=== PATIENT | male | born 1975 | race Caucasian/White ===

== ENCOUNTER 2016-11-14 03:48 | Emergency (ER) | payer OTHER ==
[2016-11-14 04:05] VITALS: BP 217/116
[2016-11-14] MEDS ORDERED: Ketorolac INJ* 60 MG/2 ML VIAL IM ONE (04:18)
--- NOTE | 2016-11-14 04:20 | ED ---
Joshua Mejia Matthew, scribed for rIon Briones MD on 11/14/16 at 0420 . Back Pain - HPI Summary HPI Summary: A 41 y/o male presents to the ED lower back pain since yesterday evening. The pain is rated 4/10 in severity. The patient states that he twisted in the car and felt sudden lower back pain. The pain worsens when rising his arms and with movement. He's also c/o of erythema and pruritic rash of the left lower extremity. He recently had a tattoo at that location. - History of Current Complaint Chief Complaint: EDBackInjuryPain Stated Complaint: LOWER BACK PAIN Time Seen by Provider: 11/14/16 04:06 Hx Obtained From: Patient Onset/Duration: Sudden Onset, Lasting Days, Still Present Onset/Duration: Started Days Ago, Atraumatic, Still Present Timing: Constant Back Pain Location: Is Discrete @ - lower back Severity Initially: Moderate Severity Currently: Moderate Pain Intensity: 4 Pain Scale Used: 0-10 Numeric Aggravating Symptom(s): Movement Associated Signs And Symptoms: Positive: Other - pain lifting his arms upon his waist - Allergies/Home Medications Allergies/Adverse Reactions: Allergies Allergy/AdvReac Type Severity Reaction Status Date / Time Amoxicillin [From Augmentin] Allergy Rash Verified 11/14/16 03:53 Clavulanic Acid Allergy Rash Verified 11/14/16 03:53 [From Augmentin] PMH/Surg Hx/FS Hx/Imm Hx Previously Healthy: Yes Endocrine/Hematology History: Denies: Hx Diabetes Cardiovascular History: Denies: Hx Hypertension - Surgical History Surgery Procedure, Year, and Place: left knee ACL repair Infectious Disease History: No Infectious Disease History: Denies: Traveled Outside the [place] in Last 30 Days - Family History Known Family History: Positive: Diabetes - grandmother - Social History Occupation: Employed Full-time Alcohol Use: Daily Hx Substance Use: No Substance Use Type: Reports: None Hx Tobacco Use: No Smoking Status (MU): Never Smoked Tobacco Review of Systems Constitutional: Negative Eyes: Negative ENT: Negative Cardiovascular: Negative Respiratory: Negative Gastrointestinal: Negative Genitourinary: Negative Musculoskeletal: Other - pain with lifting his arms above his waist Positive: Myalgia - lower back pain Positive: Rash - left lower extermitiy, erythematous and pruritic Neurological: Negative Psychological: Normal All Other Systems Reviewed And Are Negative: Yes Physical Exam Triage Information Reviewed: Yes Vital Signs On Initial Exam: Initial Vitals Temp Pulse Resp BP Pulse Ox 98.3 F 94 16 217/116 98 11/14/16 03:53 11/14/16 03:53 11/14/16 03:53 11/14/16 03:53 11/14/16 03:53 Vital Signs Reviewed: Yes Appearance: Positive: Pain Distress - MILD DISCOMFORT Skin: Positive: Warm ENT: Positive: Hearing grossly normal Respiratory/Lung Sounds: Positive: Breath Sounds Present Musculoskeletal: Positive: Other - tender spasm lt lower para lumbar musculature Neurological: Positive: Sensory/Motor Intact, Normal Gait Diagnostics - Vital Signs Vital Signs Temp Pulse Resp BP Pulse Ox 11/14/16 03:53 98.3 F 94 16 217/116 98 - Laboratory Lab Statement: Any lab studies that have been ordered have been reviewed, and results considered in the medical decision making process. Re-Evaluation - Re-Evaluation First Eval Change: Improved Back Pain Course/Dx - Diagnoses Provider Diagnoses: Acute low back pain Discharge - Discharge Plan Condition: Improved Disposition: HOME Prescriptions: Cyclobenzaprine TAB* [Flexeril 10 MG TAB*] 10 mg PO TID #30 tab Patient Education Materials: Cyclobenzaprine (By mouth), Low Back Strain (ED), Lower Back Exercises (ED) Referrals: [facility] [Outside] Additional Instructions: Please follow-up with your primary care physician. The documentation as recorded by the Joshua valderrama Matthew accurately reflects the service I personally performed and the decisions made by me, Iron Briones MD.
[2016-11-14] MEDS ORDERED: Ketorolac INJ* 30 MG/ML 1 ML VIAL ONE (04:25)
[2016-11-14] MEDS ORDERED: Ketorolac INJ* 30 MG/ML 1 ML VIAL IM ONE (05:00)
[2016-11-14] MEDS ORDERED: Cyclobenzaprine TAB* 10 MG PO ONE (06:20)
== END 2016-11-14 06:30 | disposition home or self-care (01) ==
LOC: ED 03:48
DX: M54.5 Low back pain (principal); Z88.8 Allergy status to other drugs, medicaments and biological substances
CPT/HCPCS: 96372; 99282; A9270-GY; J1885